=== PATIENT | male | born 1960 | race Caucasian/White ===

== ENCOUNTER → 2016-03-26 | Outpatient (CLI) | payer OTHER | LOC: SLEEP LAB 20:53 | PROVIDERS: ATTEND Internal Medicine Cardiovascular Disease | DX: R06.09 Other forms of dyspnea (principal); G47.36 Sleep related hypoventilation in conditions classified elsewhere | CPT/HCPCS: 95811 ==

== ENCOUNTER 2016-07-10 13:57 | Outpatient (CLI) | payer OTHER ==
[~2016-07-10 13:57] MED LIST: LIDOCAINE W/ SODIUM BICARB 0.5 ML SYR SUBD PRN; NORMAL SALINE 10 ML SYRINGE FLUSH IVP PRN
[2016-07-10] MEDS ORDERED: Zoledronic/Mannitol/Water Inj 100 ML IV SCH (14:00)
[2016-07-10 14:38] VITALS: RESP 20; TEMP 98
== END 2016-07-10 15:10 | disposition home or self-care (01) ==
LOC: IV THERAPY 13:57
PROVIDERS: ATTEND Personal Emergency Response Attendant
DX: M81.0 Age-related osteoporosis without current pathological fracture (principal)
CPT/HCPCS: 96365; 99211; J3489